=== PATIENT | female | born 1985 | race Caucasian/White ===

== ENCOUNTER 2024-04-08 19:19 | Inpatient (IN) ==
[2024-04-08] MEDS ORDERED: OXYTOCIN 30 UNITS/NSS 30 UNITS/500 ML BAG IV PRN (21:32)
[2024-04-08] MEDS ORDERED: LACTATED RINGER'S 1,000 ML IV PRN (21:32)
[2024-04-08] MEDS ORDERED: LIDOCAINE 1% LOCAL 20 ML VIAL INFIL PRN (21:32)
--- NOTE | 2024-04-08 21:34 | History & Physical Report ---
Date of Service April 08, 2024 Assessment & Plan (1) Normal labor: (2) 40 weeks gestation of : Plan admit for labor. fetus category one. Wants minimal intervention and declines epidural at this time. Offered arom, considering. anticipate . History of Present Illness Chief Complaint: contractions Primary Care Provider: AJAY Calabrese Patient is a 39yowf with iup at 40 2/7 weeks who presents to labor and delivery with worsening contractions. Checked today in the office and was 4cm. Here she is 5/80. While walking, feels contractions are stronger. She notes no vb/lof. Had not noted alot of movement before she came to the hospital. and Delivery Plans AMA Weekly NST's @ 36 weeks OB Labs: Blood Type O Positive 09/10/23 Antibody Screen NEGATIVE 09/10/23 Hgb 10.1 g/dl (12.0-16.0) L 01/12/24 Hct 30.4 % (37.0-47.0) L 01/12/24 MCV 85.2 fL (80.0-100.0) 09/10/23 Plt Count 218 K/uL (130-400) 09/10/23 Rubella IgG Antibody Immune (Immune) 09/10/23 Treponema pallidum Ab Negative (Negative) 01/12/24 Hep Bs Antigen Negative (Negative) 09/10/23 Hepatitis C Antibody Negative (Negative) 09/10/23 HIV 1&2 Ab/P24 Ag 4thGn Negative (Negative) 09/10/23 Glucose 1 Hr 50 gm 144 mg/dl (70-130) H 10/27/23 Maternal Serum AFP 47.5 ng/mL 10/16/20 OB Optional Labs: Chlamydia trachomatis RNA Not Detected (NotDetected) 09/10/23 Neisseria gonorrhoeae RNA Not Detected (NotDetected) 09/10/23 Thyroid Stimulating Hormone (TSH) 0.98 uIU/mL (0.30-4.50) 04/30/21 Alpha Fetoprotein Triple Screen SEE NOTE 10/16/20 Labs Reviewed: cf/sma neg last --akh cfdna-low risk--mln gbs neg Allergies Allergy/AdvReac Type Severity Reaction Status Date / Time amoxicillin Allergy rash Verified 04/08/24 11:42 Home Medications Medication Instructions Recorded Confirmed Type PNV no.[id number] 1 tab PO DAILY 09/10/23 04/08/24 History [ Gummies] ferrous sulfate 325 mg (65 mg 325 mg PO DAILY 01/23/24 04/08/24 History iron) tablet (Feosol) Patient History Medical History History of chicken pox H/O lead exposure Abnormal Pap smear of cervix History of IBS Surgical History S/P wisdom tooth extraction History of cryosurgery History of colposcopy S/P inguinal hernia repair Family History Grandfather (Maternal) Colorectal cancer Grandmother (Paternal) Pancreatic cancer Family/Other Down syndrome cousin Aunt Breast cancer Father Pancreatic cancer Father Pancreatic cancer Denies family history of Ovarian cancer Lung cancer Social History Smoking Status: Never smoker Second Hand Exposure: No; Do You Dip or Chew Tobacco: No; Hx Alcohol Use: Yes Alcohol Intake Frequency: 2-3 x/Week Hx Substance Use: No Preferred Language: [place] Communication Ability: Effective Visual Impairment: No Limitations Hearing Ability: Normal Asbestos Siding Mechanic Required: No Beliefs That Will Affect Care: None marital status: marital status details: Charlie Lozano (46) [phone] Current Living Situation: Spouse and Family Current Living Situation Comment: lives with spouse, child no pets current occupational status: employed current occupation: [employer] instructor How many Children do You have: 1 Other Information That Helps Us Care for You: No Feels Safe at Home: Yes Safety Concerns: Feels Safe At This Time Childhood Exposure to Second-Hand Smoke: No Diet: gluten free caffeine: Yes during the past year weight has: remained stable Dental Care, Regularly: Yes Physical Activity Frequency: 3-4 Times per Week Seatbelt Use: always Sunscreen Use: Yes Assistive Devices: None OB History Past Pregnancies Del. Date GA wks Lbr Lgth wt Sex Type del Anes Place Del Prov ? Comment 03/16/21 40 12 7-3 M None Other [place] N anterior placenta [employer] History noncontributory Physical Exam Constitutional: WD/WN, vitals as above Gastrointestinal (Abdomen): soft, gravid, nt Psychiatric: A+Ox3, euthymic affect Genitourinary: cx--/-2 toco--q2-5min efm--140s with mod variability, accels to 160s, no decels Results & Data Vital Signs (Past 12 Hours) Vital Signs Temp Pulse Resp BP 04/08/24 19:33 73 118/69 04/08/24 19:31 36.4 C L 18 Coding Level of Care Code None Diagnoses Normal labor O80; Z37.9 40 weeks gestation of Z3A.40
[2024-04-08 22:02] LABS: Hematocrit (blood only) 34.4 % (37.0-47.0); Hemoglobin 11.8 g/dl (12.0-16.0); Mean Corpuscular Hemoglobin 29.2 pg (25.0-34.0); Mean Corpuscular Hgb Conc 34.3 g/dL (32.0-36.0); Mean Corpuscular Volume 85.1 fL (80.0-100.0); Mean Platelet Volume 10.3 fL (9.4-12.4); Platelet Count 214 K/uL (130-400); RDW Coefficient of Variation 15.1 % (11.5-14.5); RDW Standard Deviation 46.6 fL (36.4-46.3); Red Blood Count 4.04 M/uL (4.20-5.40); White Blood Count 17.05 K/ul (4.8-10.8)
[2024-04-08] MEDS: OXYTOCIN 30 UNITS/NSS 30 UNITS/500 ML BAG IV PRN (22:39)
--- NOTE | 2024-04-08 22:55 | Delivery Summary ---
Vaginal Delivery Summary Date of Service April 08, 2024 Vaginal Delivery Summary and 2nd Degree LAC Pre-operative Diagnosis: at 40 2/7 active labor Post-operative Diagnosis: same Procedure: arom second degree laceration with repair EBL: 157cc Anesthesia: local infiltration of lidocaine Procedure: Patient presented to labor and delivery in active labor. She progressed to 9cm and fetus had a decel that recovered. We then did arom for thin meconium fluid. AFter a couple of contractions, she was c/c/+2. The patient pushed for about 3 minutes to deliver a viable male infant in dangelo position. The rest of the infant was then delivered without difficulty. The baby was vigorous. The nose and mouth were bulb suctioned and the infant was placed in the maternal abdomen for drying and attention. Cord was clamped and cut at one minute of life. Cord blood and segment obtained. Placenta delivered spontaneous, intact with a three vessel cord. Cervix/sulci/rectum were intact. A second degree perineal laceration was repaired in the normal standard fashion after infiltration of lidocaine. Hemostasis obtained with dilute pitocin and fundal massage. Apgars were 8/9. Mother and baby doing well at the end of the delivery. [facility] Vaginal Delivery Charge Delivery Type Details: and 2nd Degree LAC
[2024-04-08] MEDS ORDERED: ACETAMINOPHEN 325 MG TAB PO PRN (23:03)
[2024-04-08] MEDS ORDERED: IBUPROFEN 600 MG TAB PO PRN (23:03)
[2024-04-08] MEDS ORDERED: oxyCODONE/ACETAMINOPHEN 5mg/325mg TAB PO PRN (23:03)
[2024-04-08] MEDS ORDERED: HYDROCORTISONE ACETATE 25 MG SUPP PR PRN (23:03)
[2024-04-08] MEDS: DIPHTHER/TETAN/PERTUS Vaccine (Tdap, Adol/Adult) 0.5mL IM ONE (23:39)
[2024-04-09] MEDS: BENZOCAINE 20% SPRY 85 APPLN/85 GM CAN EXT PRN (00:51)
--- NOTE | 2024-04-09 06:32 | Obstetrical Progress Note ---
Date of Service <Niurka Forrest MD - Last Filed: 04/09/24 07:12> April 09, 2024 Assessment & Plan <Niurka Forrest MD - Last Filed: 04/09/24 07:12> (1) care and examination: PPD#1 s/p at 40 wga: Stable. Rh+, gbs neg, ri, vitals wnl, AM labs still pending Continue routine care, ambulation, diet as tolerated Plan for DC tomorrow <Lucy Hall MD, FACOG - Last Filed: 04/09/24 07:17> (1) care and examination: Subjective <Niurka Forrest MD - Last Filed: 04/09/24 07:12> Patient is a 39 y/o female who is PPD#1 following at 40 2/7 wga. 3/10 abd pain/cramping, well managed on analgesics Voiding w/o issue Tolerating meals Ambulating normally No BM yet but +passing gas Having appropriate lochia Planning for exclusive . Feel comfortable going home but would prefer tomorrow morning d/t late delivery Constitutional: no fever, no chills or no sweats Respiratory: no dyspnea Cardiovascular: no chest pain, no palpitations or no calf pain Breast: no breast pain Gastrointestinal: no nausea or no vomiting Genitourinary (female): no dysuria Neurologic: no headache(s) no changes in vision, no headaches Physical Exam <Niurka Forrest MD - Last Filed: 04/09/24 07:12> General: Alert, oriented. No acute distress. Cardiac: Regular rate and rhythm, no murmurs, rubs, or gallops. Respiratory: Clear to auscultation bilaterally. No increased work of breathing. Symmetrical chest rise. No respiratory distress. Abdomen: Soft, nontender, nondistended. Bowel sounds present. Uterus: Uterine fundus firm, nontender, palpable 1 cm below the umbilicus. Lower extremities: No lower extremity edema or swelling. No deep calf pain. Results & Data <Niurka Forrest MD - Last Filed: 04/09/24 07:12> Vital Signs (Past 12 Hours) Vital Signs Temp Pulse Pulse Resp BP BP Pulse Ox 04/09/24 04:45 36.5 C 66 16 112/67 97 04/09/24 01:40 36.7 C 70 18 117/65 97 04/09/24 00:48 70 114/61 04/09/24 00:18 67 111/61 04/08/24 23:47 71 107/61 04/08/24 23:38 66 103/61 04/08/24 23:27 77 109/62 04/08/24 23:17 73 111/59 L 04/08/24 23:08 75 118/59 L 04/08/24 22:58 81 124/59 L 04/08/24 22:47 83 119/59 L 04/08/24 19:33 73 118/69 04/08/24 19:31 36.4 C L 18 O2 Del Method 04/09/24 04:45 Room Air 04/09/24 01:40 Room Air 04/09/24 00:48 04/09/24 00:18 04/08/24 23:47 04/08/24 23:38 04/08/24 23:27 04/08/24 23:17 04/08/24 23:08 04/08/24 22:58 04/08/24 22:47 04/08/24 19:33 04/08/24 19:31 Supervising Physician <Lucy Hall MD, FACOG - Last Filed: 04/09/24 07:17> Co-Signing Physician Notes Resident Physician Supervision Note: I interviewed and examined the patient. Discussed with Dr. Forrest and agree with findings and plan as documented in the note. Any exceptions or clarifications are listed here: Doing well ppd0-1. Routine care. Home tomorrow. Documented By: Lucy Hall MD, FACOG Resident Activity Tracking <Niurka Frorest MD - Last Filed: 04/09/24 07:12> Resident Involvement: Resident Care Provided Care Provided: Adult Hospital Medicine
[2024-04-09] MEDS: PRENATAL VITAMIN 1 TAB PO SCH (09:05)
[2024-04-09] MEDS: DOCUSATE SODIUM 100 MG CAP PO SCH (09:05)
[2024-04-09 09:46] LABS: Hematocrit (blood only) 31.7 % (37.0-47.0); Hemoglobin 10.5 g/dl (12.0-16.0)
[2024-04-09] MEDS: bisacodyL 5 MG TABEC PO SCH (21:19)
[2024-04-10] MEDS ORDERED: bisacodyL 10 MG SUPP PR PRN
--- NOTE | 2024-04-10 06:43 | Obstetrical Progress Note ---
Date of Service <Niurka Forrest MD - Last Filed: 04/10/24 08:05> April 10, 2024 Assessment & Plan <Niurka Forrest MD - Last Filed: 04/10/24 08:05> (1) care and examination: PPD#2 s/p at 40 wga: Stable. Rh+, gbs neg, ri, vitals wnl, hgb stable Continue routine care, ambulation, diet as tolerated Plan for DC later today <Lin Alvarez MD, FACOG - Last Filed: 04/10/24 08:33> (1) care and examination: Subjective <Niurka Forrest MD - Last Filed: 04/10/24 08:05> Patient is a 39 y/o female who is PPD#2 following at 40 2/7 wga. Mild abd pain/cramping, not requiring analgesics Voiding w/o issue Tolerating meals Ambulating normally No BM yet but +passing gas Having appropriate lochia Planning for exclusive . Ready to go home today Constitutional: no fever, no chills or no sweats Respiratory: no dyspnea Cardiovascular: no chest pain, no palpitations or no calf pain Breast: no breast pain Gastrointestinal: no nausea or no vomiting Genitourinary (female): no dysuria Neurologic: no headache(s) Physical Exam <Niurka Forrest MD - Last Filed: 04/10/24 08:05> General: Alert, oriented. No acute distress. Cardiac: Regular rate and rhythm, no murmurs, rubs, or gallops. Respiratory: Clear to auscultation bilaterally. No increased work of breathing. Symmetrical chest rise. No respiratory distress. Abdomen: Soft, nontender, nondistended. Bowel sounds present. Uterus: Uterine fundus firm, nontender, palpable 1 cm below the umbilicus. Lower extremities: No lower extremity edema or swelling. No deep calf pain. Results & Data <Niurka Forrest MD - Last Filed: 04/10/24 08:05> Vital Signs (Past 12 Hours) Vital Signs Temp Pulse Resp BP Pulse Ox O2 Del Method 04/09/24 22:53 36.8 C 62 16 98/60 L 97 Room Air 04/09/24 19:05 36.7 C 82 16 113/66 97 Room Air Laboratory Results 04/09/24 09:15 Supervising Physician <Lin Alvarez MD, FACOG - Last Filed: 04/10/24 08:33> Co-Signing Physician Notes Resident Physician Supervision Note: I interviewed and examined the patient. Discussed with Dr. Forrest and agree with findings and plan as documented in the note. Any exceptions or clarifications are listed here: [None] Documented By: Lin Alvarez MD, TABITHAOG Resident Activity Tracking <Niurka Forrest MD - Last Filed: 04/10/24 08:05> Resident Involvement: Resident Care Provided Care Provided: Adult Hospital Medicine
[2024-04-10 08:07] VITALS: BP 103/66; PULSE 80; RESP 20; TEMP 97.9; O2SAT 99
== END 2024-04-10 10:50 | disposition home or self-care (01) | DRG 807 ==
LOC: OPB 19:19 → 4S1 19:21 → 4E2 04-09 01:29